=== PATIENT | male | born 1980 | race Caucasian/White ===

== ENCOUNTER 2017-09-14 22:35 | Emergency (ER) | payer SELFPAY ==
[~2017-09-14] VITALS: Ht 165.1 cm; Wt 74.8 kg
[2017-09-14] MEDS ORDERED: TDAP DIPH,PERTUSS,TET VAC/PF 0.5 ML DISP.SYRIN IM ONE ×2 (22:59→23:00)
--- NOTE | 2017-09-14 23:17 | NUR ---
Patient discharged to home in stable conditon. Written and verbal after care instructions given. Patient verbalizes understanding of instructions. Ambulated from ER. No acute distress. VSS. All belongings with patient.
[2017-09-14 23:18] VITALS: BP 130/74
== END 2017-09-14 23:18 | disposition home or self-care (01) ==
LOC: ER 22:35
DX: S61.305A Unspecified open wound of left ring finger with damage to nail, initial encounter (principal); W26.9XXA Contact with unspecified sharp object(s), initial encounter; Y93.89 Activity, other specified; Y99.8 Other external cause status; Y92.89 Other specified places as the place of occurrence of the external cause
CPT/HCPCS: 90715; A4663